=== PATIENT | female | born 1955 | race Caucasian/White ===

== ENCOUNTER 2018-08-14 17:55 | Inpatient (IN) | payer BC ==
[~2018-08-14] VITALS: Ht 165.1 cm; Wt 55.3 kg
[~2018-08-14 17:55] MED LIST: LISINOPRIL10 MG; MACROBID 100 M100 M1 PO; NEXIUM40 MG; OMEGA-31000 M1
[2018-08-14 17:58] VITALS: BP 173/74
[2018-08-14 18:28] LABS: ABSOLUTE BASOPHILS 0.1 thou/uL (0.0-0.2); ABSOLUTE EOSINOPHILS 0.3 thou/uL (0.0-0.7); ABSOLUTE LYMPHOCYTES 3.9 thou/uL (0.8-5.3); ABSOLUTE MONOCYTES 0.9 thou/uL (0.0-1.2); ABSOLUTE NEUTROPHILS 3.8 thou/uL (1.6-8.1); BASOPHILS 0.6 %; EOSINOPHILS 3.3 %; HEMATOCRIT 41.4 % (37.0-47.0); HEMOGLOBIN 13.9 gm/dL (12.0-15.0); LYMPHOCYTES 43.8 %; MCH 31.4 pg (26.0-34.0); MCHC 33.6 g/dL (28.0-37.0); MCV 93.4 fL (80.0-100.0); MONOCYTES 9.7 %; MPV 8.4 fl. (7.2-11.1); NUCLEATED RBCS 0 /100WBC; PLATELET COUNT* 437 thou/uL (150-400); POLYS 42.6 %; RBC 4.43 mil/uL (4.20-5.00); RDW-CV 12.4 % (10.5-14.5); WBC 8.9 thou/uL (4.0-11.0)
[2018-08-14 18:36] LABS: CALCIUM 9.3 mg/dL (8.5-10.1); CREATININE 0.8 mg/dL (0.6-1.3); POTASSIUM 3.4 mmol/L (3.5-5.1)
[2018-08-14 18:39] LABS: INR 1.1; PROTIME 11.3 Seconds (9.20-11.50)
[2018-08-14 18:41] LABS: ALBUMIN 3.8 g/dL (3.4-5.0); TOTAL BILIRUBIN 0.2 mg/dL (<0.1-1.0); TOTAL PROTEIN 7.5 g/dL (6.4-8.2)
[2018-08-14 19:05] LABS: URINE BILIRUBIN NEGATIVE (Negative); URINE BLOOD NEGATIVE (Negative); URINE CLARITY CLEAR; URINE COLOR YELLOW; URINE GLUCOSE-RANDOM NEGATIVE (Negative); URINE KETONES NEGATIVE (Negative); URINE LEUKOCYTES-REFLEX TRACE (Negative); URINE NITRITE-REFLEX NEGATIVE (Negative); URINE PROTEIN NEGATIVE (Negative); URINE UROBILINOGEN 0.2 E.U./dl (0.2-1.0)
[2018-08-14 19:12] LABS: BACTERIA-REFLEX None Seen /HPF (None Seen); CASTS None Seen /LPF (None Seen); CRYSTALS None Seen /LPF (None Seen); SQUAMOUS 0-3 Few /LPF (0-3); URINE RBC None Seen /HPF (0-2); URINE WBC-REFLEX 0-5 Rare /HPF (0-5)
[2018-08-14 22:20] VITALS: BP 136/57
[2018-08-14 22:31] VITALS: BP 131/80
--- NOTE | 2018-08-15 01:07 | NUR ---
ASSUMED CARE OF PT AT 2225. PT IS ALERT AND ORIENTED. VSS. PERRLA. NO COMPLAINTS OF PAIN. PT IS IN SINUS RYTHM ON THE TELEMETRY. PT IS RESTING COMFORTABLY IN BED. RESPIRATIONS ARE EVEN AND NONLABORED. WILL CONTINUE TO MONITOR PT.
[2018-08-15 04:00] VITALS: BP 105/48
[2018-08-15 08:00] VITALS: BP 108/59
[2018-08-15 08:41] LABS: CHOLESTEROL 125 mg/dL (<200); HDL CHOLESTEROL 28 mg/dL (>40); LDL CHOLESTEROL 68 mg/dL (<100); TC:HDL 4.5 Ratio (Not establshd); TRIGLYCERIDE 145 mg/dL (<150); VLDL 29 mg/dL (<40)
[2018-08-15 08:49] LABS: SERUM ASSESSMENT Clear
--- NOTE | 2018-08-15 10:50 | EKG ---
[place] [address] ELECTROCARDIOGRAM REPORT Name: CHRISTIANO SHETTY Room: [address] ADM IN M.R.#: [id number] Admission: 08/14/18 Attend Phys: Xiomy Linares Discharge: Date of : 57 Report #: [id number] THIS REPORT FOR: //name// [facility] ED Test Date: 2018-08-14 Test Time: 17:59:52 Pat Name: CHRISTIANO SHETTY Department: Room: [facility] Gender: F Pear Picker: Adolfo CAMPOS : 1955 Requested By: Amelia Asencio Order Number: [id number] MD: Finesse Salazar Measurements Intervals [place] Rate: 89 P: 69 [place]: 147 QRS: 39 QRSD: 108 T: 50 QT: 394 QTc: 480 Interpretive Statements Sinus rhythm Probable left atrial enlargement RSR' in V1 or V2, right VCD or RVH ST depression, lateral leads, consider ischemia No previous ECG available for comparison Electronically Signed On 08-15-2018 10:50:30 BRANCH ADMINISTRATOR by Finesse Salazar [email or web address] <ELECTRONICALLY SIGNED> By: Finesse Salazar MD, FAC 08/15/18 1050 1759 1759 Finesse Salazar MD, [facility] /EPI
[2018-08-15 11:54] VITALS: BP 115/38
--- NOTE | 2018-08-15 11:58 | NUR ---
MET WITH PT TO DISCUSS HOME SITUATION/DC PLANNING. PT LIVES WITH SPOUSE, WORKS OUTSIDE THE HOME AND IS INDEPENDENT AND ACTIVE. PT STATES SHE IS INBETWEEN FINDING A NEW PCP BUT HER SON IN LAW IS A DR. PT DENIES NEEDS
--- NOTE | 2018-08-15 12:16 | NUR ---
PT NPO FOR STRESS TEST. VSS. AFEBRILE. PT DENIES LIGHTHEADEDNESS AND NUMBNESS/ TINGLING. PT ASKING IF SHE WILL GO HOME TODAY. DISCUSSED WITH PT PLAN OF CARE.
[2018-08-15] MEDS ORDERED: AUGMENTIN 875-1 EACH PO ×3 (13:03→17:01)
[2018-08-15 15:47] VITALS: BP 115/58
[2018-08-15 16:06] VITALS: BP 115/58
--- NOTE | 2018-08-15 16:12 | NUR ---
WAS ASKED TO ARRANGE FOR CV MONITOR. PT NOT BEING SEEN BY CARDIOLOGY. PT STATES SHE DOESN'T HAVE A PCP NOW BUT HER ZENY/DR ANDREI SHETTY MIGHT SET IT UP. CALL TO DR SHETTY'S OFFICE, SPOKE WITH NURSE GEOVANNA. SHE STATED THAT HIS COLLEAGE/DR FRANCISCO PAYNE WOULD ORDER IT FOR PT. FAXED ORDER, H/P AND FACE SHEET TO GEOVANNA AT [phone]. PT AND SPOUSE UPDATED
--- NOTE | 2018-08-15 16:25 | EXE ---
[place] [address] STRESS ECHOCARDIOGRAM Name: CHRISTIANO SHETTY Room: [address] IN [facility]#: [id number] Admission: 08/14/18 Attend Phys: Bunny Alcala Discharge: Date of : 57 Date of Service: 08/15/18 1625 Report #: [id number] THIS REPORT FOR: //name// APPROVED REPORT Study performed: 08/15/2018 13:22:44 Exam: Stress Echocardiogram Indication: Syncope Patient Location: In-Patient Stress Nurse: Adeline Salcedo RN Room #: [facility] Supervising Physician: Finesse Salazar MD Status: routine Ht: 5 ft 4 in HR: 68 bpm BP: 144/77 mmHg Rhythm: NSR Medical History Cardiac Risk Factors: Hyperlipidemia, HTN, Smoking Procedure The patient underwent an Exercise Stress Test using the Mg Protocol. Blood pressure, heart rate, and EKG were monitored. An Echocardiogram was performed by chemistry technician in four stages in quad fashion. At peak stress, four selected images were obtained and placed side by side with resting images for comparison. Stress Test Details Stress Test: Exercise stress testing was performed using a Mg protocol. HR Resting HR: 68 bpm Max Heart Rate (APMHR): 159 bpm Max HR Achieved: 148 bpm Target HR (85% APMHR): 135 bpm % of APMHR: 93 Recovery HR: 76 bpm HR response to stress: Normal HR response to stress BP Resting BP: 144/77 mmHg Max BP: 194/49 mmHg Recovery BP: 139/52 mmHg BP response to stress: Normal blood pressure response to stress. [address] [address] STRESS ECHOCARDIOGRAM Name: CHRISTIANO SHETTY Room: [address]#: [id number] Admission: 08/14/18 Attend Phys: Bunny Alcala Discharge: Date of : 57 Date of Service: 08/15/18 1625 Report #: [id number] Resting ECG: sinus rhythm Stress ECG: minor inferolateral st-t changes in the late post exercise phase Clinical Reason for Termination: Leg pain and fatigue Exercise duration: 8 min 15 sec Highest Stage Achieved: Stage 3: 3.4 mph at 14% grade. Exercise capacity: 10.16 METs Pre-Stress Echo The resting Echocardiogram showed normal left ventricular contractility with an estimated Ejection Fraction of about 60-65%. Normal wall motion in all segments on baseline images. Post-Stress Echo The stress Echocardiogram showed normal left ventricular contractility with an estimated Ejection Fraction of about >70%. Normal augmentation of wall motion in all segments on post stress images. Conclusion Clinical Response: Non-ischemic Exercise Capacity: Average Stress ECG Response: Indeterminant Stress Echo Images: Non-ischemic Other Information Study Quality: Good <ELECTRONICALLY SIGNED> By: Finesse Salazar MD, FACC 08/15/18 1625 24 24 Finesse Salazar MD, FACC /INF
[2018-08-15 16:26] LABS: INFLUENZA A ANTIGEN None Detected (None Detect); INFLUENZA B ANTIGEN None Detected (None Detect)
--- NOTE | 2018-08-15 16:28 | NUR ---
PER DR GIMENEZ STRESS TEST "LOOKS NORMAL".
[2018-08-15] MEDS ORDERED: TOPROL XL25 MG PO (17:11)
[2018-08-15] MEDS ORDERED: FENOFIBRATE160 MG PO (17:12)
[2018-08-15] MEDS ORDERED: EVISTA PO (17:14)
--- NOTE | 2018-08-15 17:29 | NUR ---
RECEIVED DISCHARGE ORDERS. CALLED IN AUGMENTIN TO PHARMACY. CALLED PHARMACY TO UPDATE PT MEDICATION LIST. DR BRISCOE NOTIFIED.
== END 2018-08-15 17:28 | disposition home or self-care (01) | DRG 312 ==
LOC: M.ERS 17:55 → M.2W 21:44 → M.TBA-ER 21:44 → M.2W 22:06
PROVIDERS: Internal Medicine; Personal Emergency Response Attendant; ADMIT Internal Medicine
DX: R55 Syncope and collapse (principal); I10 Essential (primary) hypertension; K21.9 Gastro-esophageal reflux disease without esophagitis; F41.9 Anxiety disorder, unspecified; E78.5 Hyperlipidemia, unspecified; F17.210 Nicotine dependence, cigarettes, uncomplicated; R06.82 Tachypnea, not elsewhere classified; J06.9 Acute upper respiratory infection, unspecified; Z79.899 Other long term (current) drug therapy

== ENCOUNTER 2021-08-03 20:19 | Emergency (ER) | payer BC ==
[~2021-08-03] VITALS: Ht 162.6 cm; Wt 55.3 kg
[~2021-08-03 20:19] MED LIST changes: +AUGMENTIN 875-1 EACH PO; +EVISTA PO; +FENOFIBRATE160 MG PO; +TOPROL XL25 MG PO
[2021-08-03] MEDS ORDERED: SUPER THERAVIT1 EACH PO (20:31)
[2021-08-03 21:32] LABS: ABSOLUTE BASOPHILS 0.1 thou/uL (0.0-0.2); ABSOLUTE EOSINOPHILS 0.4 thou/uL (0.0-0.7); ABSOLUTE LYMPHOCYTES 3.2 thou/uL (0.8-5.3); ABSOLUTE MONOCYTES 0.7 thou/uL (0.0-1.2); ABSOLUTE NEUTROPHILS 3.7 thou/uL (1.6-8.1); EOSINOPHILS 4.6 %; HEMATOCRIT 41.4 % (37.0-47.0); LYMPHOCYTES 40.3 %; MCH 31.5 pg (26.0-34.0); MCHC 33.9 g/dL (28.0-37.0); MCV 92.9 fL (80.0-100.0); MONOCYTES 8.2 %; MPV 7.7 fl. (7.2-11.1); NUCLEATED RBCS 0 /100WBC; PLATELET COUNT* 323 thou/uL (150-400); POLYS 45.9 %; RBC 4.45 mil/uL (4.20-5.00); RDW-CV 12.8 % (10.5-14.5)
[2021-08-03 21:43] LABS: CALCIUM 9.2 mg/dL (8.5-10.1); CREATININE 0.8 mg/dL (0.6-1.3); POTASSIUM 3.7 mmol/L (3.5-5.1)
[2021-08-03 21:54] LABS: ALBUMIN 3.9 g/dL (3.4-5.0); TOTAL BILIRUBIN 0.2 mg/dL (<0.1-1.0); TOTAL PROTEIN 7.4 g/dL (6.4-8.2)
[2021-08-03 22:01] LABS: APTT 24.2 Seconds (25.0-31.3); INR 1.1; PROTIME 11.2 Seconds (9.20-11.50)
[2021-08-04] MEDS ORDERED: OMEPRAZOLE40 MG PO (02:00)
[2021-08-04] MEDS ORDERED: CARAFATE 1 GM TA1 G1 PO (02:00)
[2021-08-04] MEDS ORDERED: ZOFRAN ODT4 MG PO (02:00)
[2021-08-04 02:20] VITALS: BP 155/78
--- NOTE | 2021-08-04 12:21 | EKG ---
[place] [address] ELECTROCARDIOGRAM REPORT Name: CHRISTIANO SHETTY Room: [facility]#: [id number] Admission: 08/03/21 Attend Phys: Discharge: 08/04/21 Date of : 57 Date of Service: 08/03/212023 Report #: [id number] THIS REPORT FOR: //name// [facility] ED Test Date: 2021-08-03 Test Time: 20:24:08 Pat Name: CHRSITIANO SHETTY Department: Room: Gender: Repeater Chief: : 1955 Requested By: Veena Holden Order Number: [id number] MD: Finesse Salazar Measurements Intervals [place] Rate: 70 P: 69 [place]: 153 QRS: 47 QRSD: 102 T: 49 QT: 408 QTc: 441 Interpretive Statements Sinus rhythm Probable left atrial enlargement RSR' in V1 or V2, right VCD Compared to ECG 08/14/2018 17:59:52 ST (T wave) deviation no longer present Possible ischemia no longer present Electronically Signed On 08-04-2021 12:21:03 TEMPLATE WORKER by Finesse Salazar [email or web address] <ELECTRONICALLY SIGNED> By: Finesse Salazar MD, FAC 08/04/21 1221 23 23 Finesse Salazar MD, [facility] /EPI
== END 2021-08-04 02:20 | disposition home or self-care (01) ==
LOC: M.ERS 20:19
PROVIDERS: Personal Emergency Response Attendant; Physician Assistant
DX: K80.50 Calculus of bile duct without cholangitis or cholecystitis without obstruction (principal); Z20.822 Contact with and (suspected) exposure to COVID-19; K21.9 Gastro-esophageal reflux disease without esophagitis; I10 Essential (primary) hypertension; E78.5 Hyperlipidemia, unspecified; Z79.891 Long term (current) use of opiate analgesic; Z79.899 Other long term (current) drug therapy